=== PATIENT | male | born 1965 ===

== ENCOUNTER 2017-09-20 13:03 | Day surgery (SDC) | payer MEDICAID ==
[2017-09-12 15:17] VITALS: BMI 25.9
[2017-09-20] MEDS ORDERED: Propofol 10 mg/ml Inj (20 ML) ONE (13:26)
[2017-09-20] MEDS ORDERED: Midazolam 2 MG/2 ML VIAL ONE (13:26)
[2017-09-20] MEDS ORDERED: Sodium Chloride 0.9% 1,000 ML IV SCH (14:45)
[2017-09-20 15:54] VITALS: PULSE 64; TEMP 97.2; O2SAT 99
[2017-09-20 16:19] VITALS: BP 122/76; RESP 18
== END 2017-09-20 16:30 | disposition home or self-care (01) ==
LOC: ENDO 13:03
PROVIDERS: ATTEND Internal Medicine
DX: K22.70 Barrett's esophagus without dysplasia (principal); K29.50 Unspecified chronic gastritis without bleeding; K20.9 Esophagitis, unspecified; K52.9 Noninfective gastroenteritis and colitis, unspecified; K63.89 Other specified diseases of intestine; K64.8 Other hemorrhoids
CPT/HCPCS: 43239; 45380; 87045; 87177; 87209; 87324; 88305; 88312; 88342; J2250; J2704; J7040 ×2

== ENCOUNTER 2017-11-06 07:57 | Day surgery (SDC) | payer MEDICAID ==
[2017-10-25 12:50] VITALS: BMI 24.7
[2017-11-06] MEDS ORDERED: Propofol 10 mg/ml Inj (20 ML) ONE (09:02)
[2017-11-06] MEDS ORDERED: ePHEDrine 50 mg/ml Inj ONE (09:52)
[2017-11-06] MEDS ORDERED: Sodium Chloride 0.9% 1,000 ML IV SCH (10:30)
[2017-11-06 11:24] VITALS: BP 124/78; PULSE 74; RESP 16; TEMP 97.4; O2SAT 99
== END 2017-11-06 12:23 | disposition home or self-care (01) ==
LOC: ENDO 07:57
PROVIDERS: ATTEND Internal Medicine
DX: K22.70 Barrett's esophagus without dysplasia (principal); K29.50 Unspecified chronic gastritis without bleeding; K21.9 Gastro-esophageal reflux disease without esophagitis; Z12.11 Encounter for screening for malignant neoplasm of colon; K63.5 Polyp of colon; K64.8 Other hemorrhoids
CPT/HCPCS: 43239; 45380; 88305; 88312; 88342; J2001; J2704; J3010; J7030; J7040